=== PATIENT | male | born 1990 | race Caucasian/White ===

== ENCOUNTER 2017-07-17 20:50 | Inpatient (IN) | payer MEDICAID, OTHER, SELFPAY ==
[2017-07-17 21:47] LABS: HEMATOCRIT 44.6 % (42.0-52.0); HEMOGLOBIN 15.3 g/dl (14.0-18.0); MEAN CORPUSCULAR HEMOGLOBIN 30.1 pg (27.0-33.0); MEAN CORPUSCULAR HGB CONC 34.3 g/dl (32.0-36.5); MEAN CORPUSCULAR VOLUME 87.8 fl (80.0-96.0); PLATELET COUNT, AUTOMATED 218 10^3/uL (150-450); RED BLOOD COUNT 5.08 10^6/uL (4.30-6.10); RED CELL DISTRIBUTION WIDTH 11.8 % (11.5-14.5); WHITE BLOOD COUNT 9.3 10^3/uL (4.0-10.0)
[2017-07-17 22:10] LABS: AMPHETAMINES LEVEL URINE NEGATIVE (NEGATIVE); BARBITURATES URINE NEGATIVE (NEGATIVE); BENZODIAZEPINES URINE NEGATIVE (NEGATIVE); CANNABINOIDS URINE NEGATIVE (NEGATIVE); COCAINE METABOLITE URINE NEGATIVE (NEGATIVE); METHADONE URINE NEGATIVE (NEGATIVE); OPIATES URINE NEGATIVE (NEGATIVE); PHENCYCLIDINE URINE NEGATIVE (NEGATIVE)
[2017-07-17 22:19] LABS: ACETAMINOPHEN LEVEL < 2.0 UG/ML (10.0-30.0); ALBUMIN 4.5 GM/DL (3.2-5.2); ALBUMIN/GLOBULIN RATIO 1.36 (1.00-1.93); ALKALINE PHOSPHATASE 70 U/L (45-117); ALT/SGPT 16 U/L (12-78); ANION GAP 7 MEQ/L (8-16); AST/SGOT 15 U/L (7-37); BILIRUBIN,DIRECT < 0.1 MG/DL (0.0-0.2); BILIRUBIN,TOTAL 0.4 MG/DL (0.2-1.0); BLOOD UREA NITROGEN 9 MG/DL (7-18); CALCIUM LEVEL 9.3 MG/DL (8.5-10.1); CARBON DIOXIDE LEVEL 29 MEQ/L (21-32); CHLORIDE LEVEL 104 MEQ/L (98-107); CREATININE FOR GFR 0.76 MG/DL (0.70-1.30); ETHYL ALCOHOL (ETHANOL) < 0.003 % (0.000-0.010); GLOMERULAR FILTRATION RATE > 60.0 (>60); GLUCOSE, FASTING 91 MG/DL (70-100); POTASSIUM SERUM 3.9 MEQ/L (3.5-5.1); SODIUM LEVEL 140 MEQ/L (136-145); TOTAL PROTEIN 7.8 GM/DL (6.4-8.2)
[2017-07-17] MEDS ORDERED: MAALOX 30 ML SUSP *UDC PO (22:45)
[2017-07-17] MEDS ORDERED: MOM 30ML SUSPENSION UDC PO (22:45)
[2017-07-18] MEDS: VENLAFAXINE **XR** 37.5 MG CAPSULE PO (09:40)
[2017-07-18] MEDS: ACETAMINOPHEN TAB 650MG DOSE (2X325MG) PO (21:53)
[2017-07-19] MEDS: VENLAFAXINE **XR** 37.5 MG CAPSULE PO (09:09)
[2017-07-20] MEDS: VENLAFAXINE **XR** 75MG CAPSULE PO (09:11)
[2017-07-21] MEDS: VENLAFAXINE **XR** 75MG CAPSULE PO (09:58)
[2017-07-21] MEDS: traZODone 50 MG TAB PO (21:18)
[2017-07-22] MEDS: VENLAFAXINE **XR** 75MG CAPSULE PO (09:18)
[2017-07-22] MEDS: traZODone 100 MG TAB PO (20:27)
[2017-07-22] MEDS: ACETAMINOPHEN TAB 650MG DOSE (2X325MG) PO (20:28)
[2017-07-23] MEDS: VENLAFAXINE **XR** 75MG CAPSULE PO (09:45)
[2017-07-23] MEDS: traZODone 100 MG TAB PO (22:15)
[2017-07-24] MEDS: VENLAFAXINE **XR** 75MG CAPSULE PO (09:53)
== END 2017-07-24 13:26 | disposition home or self-care (01) | DRG 754 ==
LOC: M ED 20:50 → M ED INP 22:35 → M PSY 23:12
DX: F32.9 Major depressive disorder, single episode, unspecified (principal); Z79.899 Other long term (current) drug therapy

== ENCOUNTER 2023-08-12 18:16 | Inpatient (IN) | payer MEDICAID, OTHER ==
[~2023-08-12] VITALS: Ht 180.3 cm; Wt 61.1 kg
[~2023-08-12 18:16] MED LIST: CYMB60CA4 PO; TRAZ1TAB12 PO; VENL75CA47 PO
[2023-08-12 20:04] LABS: HEMATOCRIT 42.3 % (42.0-52.0); HEMOGLOBIN 14.9 g/dl (13.5-17.5); MEAN CORPUSCULAR HEMOGLOBIN 30.5 pg (27.0-33.0); MEAN CORPUSCULAR HGB CONC 35.2 g/dl (32.0-36.5); MEAN CORPUSCULAR VOLUME 86.5 fl (80.0-96.0); PLATELET COUNT, AUTOMATED 260 10^3/uL (150-450); RED BLOOD COUNT 4.89 10^6/uL (4.30-6.10); WHITE BLOOD COUNT 12.7 10^3/uL (4.0-10.0)
[2023-08-12] MEDS ORDERED: HOME MED LIST COMPLETE! XX SCH (20:05)
[2023-08-12 20:28] LABS: AMPHETAMINES LEVEL URINE NEGATIVE (NEGATIVE); BARBITURATES URINE NEGATIVE (NEGATIVE); BENZODIAZEPINES URINE NEGATIVE (NEGATIVE)
[2023-08-12 20:29] LABS: CANNABINOIDS URINE NEGATIVE (NEGATIVE); COCAINE METABOLITE URINE NEGATIVE (NEGATIVE); METHADONE URINE NEGATIVE (NEGATIVE); OPIATES URINE NEGATIVE (NEGATIVE); PHENCYCLIDINE URINE NEGATIVE (NEGATIVE)
[2023-08-12 20:31] LABS: ETHYL ALCOHOL (ETHANOL) < 0.003 % (0.000-0.010)
[2023-08-12 20:32] LABS: ALBUMIN 4.6 G/DL (3.2-5.2); ALKALINE PHOSPHATASE 60 U/L (46-116); ALT/SGPT 10 U/L (7.0-40); AST/SGOT 9 U/L (<34); BILIRUBIN,DIRECT 0.2 MG/DL (<0.4); BILIRUBIN,TOTAL 0.6 MG/DL (0.3-1.2); BLOOD UREA NITROGEN 12 MG/DL (9-23); CALCIUM LEVEL 9.9 MG/DL (8.5-10.1); CARBON DIOXIDE LEVEL 27 MMOL/L (20-31); CHLORIDE LEVEL 106 MMOL/L (98-107); CREATININE FOR GFR 0.76 MG/DL (0.70-1.30); GLOMERULAR FILTRATION RATE > 60.0 (>60); GLUCOSE, FASTING 104 MG/DL (60-100); POTASSIUM SERUM 4.1 MMOL/L (3.5-5.1); SALICYLATE LEVEL < 3.0 MG/DL (<30); SODIUM LEVEL 138 MMOL/L (136-145); TOTAL PROTEIN 7.2 G/DL (5.7-8.2)
[2023-08-12 20:35] LABS: THYROID STIMULATING HORMONE 1.334 uIU/ML (0.55-4.78)
[2023-08-13] MEDS ORDERED: traZODone 50 MG TAB PO PRN (03:00)
[2023-08-13] MEDS ORDERED: MAALOX 30 ML SUSP *UDC PO PRN (03:00)
[2023-08-13] MEDS ORDERED: diphenhydrAMINE 25MG CAP PO PRN (03:00)
[2023-08-13] MEDS ORDERED: MOM 30ML SUSPENSION UDC PO PRN (03:00)
[2023-08-13 03:54] VITALS: BP 122/78; TEMP 99.4; O2SAT 98
[2023-08-13] MEDS: ACETAMINOPHEN TAB 650MG DOSE (2X325MG) PO PRN (05:26)
[2023-08-13] MEDS: VENLAFAXINE **XR** 37.5 MG CAPSULE PO SCH (09:37)
[2023-08-13] MEDS: IBUPROFEN 400MG TAB PO PRN (10:58)
[2023-08-13] MEDS: NICOTINE 21MG/24HR 1 EA TRANSDERMAL TD SCH (14:19)
[2023-08-13 17:39] VITALS: BP 117/66; TEMP 98.7
[2023-08-13] MEDS: ARIPiprazole 2 MG TAB PO SCH (21:44)
[2023-08-14 06:43] VITALS: BP 113/57; TEMP 100; O2SAT 100
[2023-08-14] MEDS ORDERED: risperiDONE 1 MG TAB PO PRN (10:55)
[2023-08-14 17:34] VITALS: BP 138/92; TEMP 98.1; O2SAT 98
[2023-08-15 06:38] VITALS: BP 133/80; TEMP 98.3; O2SAT 95
[2023-08-15] MEDS: OLANZapine 5 MG TAB PO SCH (11:32)
[2023-08-15 16:25] VITALS: BP 120/73; TEMP 98.2; O2SAT 100
[2023-08-16 06:13] VITALS: BP 102/62; TEMP 97.7; O2SAT 98
[2023-08-16 15:53] VITALS: BP 134/86; TEMP 97.9; O2SAT 100
[2023-08-17 06:39] VITALS: BP 102/58; TEMP 98; O2SAT 97
[2023-08-17 16:04] VITALS: BP 113/57; TEMP 98.8; O2SAT 96
[2023-08-18 06:41] VITALS: BP 140/71; TEMP 97.9; O2SAT 98
[2023-08-18 16:42] VITALS: BP 111/61; TEMP 99.2; O2SAT 96
[2023-08-19 06:10] VITALS: BP 127/64; TEMP 97.4; O2SAT 97
[2023-08-19] MEDS: VENLAFAXINE **XR** 75MG CAPSULE PO SCH ×2 (08:14→21:00)
[2023-08-19 16:02] VITALS: BP 114/58; TEMP 98.7
[2023-08-20] MEDS: VENLAFAXINE **XR** 75MG CAPSULE PO ONE (12:32)
[2023-08-20 18:19] VITALS: BP 134/86; TEMP 98.5
[2023-08-21 06:22] VITALS: BP 123/69; TEMP 98.7; O2SAT 96
[2023-08-21] MEDS: VENLAFAXINE **XR** 75MG CAPSULE PO SCH (08:34)
[2023-08-21 16:59] VITALS: BP 129/71; TEMP 98.9; O2SAT 96
[2023-08-22 06:06] VITALS: BP 140/92; TEMP 97.9; O2SAT 99
[2023-08-22] MEDS ORDERED: VENL75CA47 PO (09:21)
== END 2023-08-22 17:23 | disposition home or self-care (01) | DRG 751 ==
LOC: M ED 18:16 → M ED INP 08-13 02:59 → M PSY 08-13 03:52
PROVIDERS: ADMIT Psychiatry & Neurology Psychiatry; ATTEND Student in an Organized Health Care Education/Training Program
DX: F33.3 Major depressive disorder, recurrent, severe with psychotic symptoms (principal); W22.09XA Striking against other stationary object, initial encounter; Y92.9 Unspecified place or not applicable; M25.541 Pain in joints of right hand; M25.542 Pain in joints of left hand; F17.200 Nicotine dependence, unspecified, uncomplicated; Z81.8 Family history of other mental and behavioral disorders; Z56.0 Unemployment, unspecified; Z11.52 Encounter for screening for COVID-19

== ENCOUNTER → 2023-08-26 | Outpatient (REF) | payer MEDICAID ==
[2023-08-26 14:28] LABS: ALBUMIN 4.1 G/DL (3.2-5.2); ALKALINE PHOSPHATASE 54 U/L (46-116); ALT/SGPT 15 U/L (7.0-40); AST/SGOT 12 U/L (<34); BILIRUBIN,TOTAL 0.3 MG/DL (0.3-1.2); BLOOD UREA NITROGEN 7 MG/DL (9-23); CALCIUM LEVEL 9.9 MG/DL (8.5-10.1); CARBON DIOXIDE LEVEL 31 MMOL/L (20-31); CHLORIDE LEVEL 106 MMOL/L (98-107); CHOLESTEROL LEVEL 177 MG/DL (<200); CHOLESTEROL RISK RATIO 3.53 (<5); CREATININE FOR GFR 0.63 MG/DL (0.70-1.30); GLOMERULAR FILTRATION RATE > 60.0 (>60); GLUCOSE, FASTING 92 MG/DL (60-100); HDL CHOLESTEROL 50.1 MG/DL (>40); LDL CHOLESTEROL 110.1 MG/DL (<100); NON-HDL-C 126.9 MG/DL; POTASSIUM SERUM 4.8 MMOL/L (3.5-5.1); SODIUM LEVEL 139 MMOL/L (136-145); TOTAL PROTEIN 6.9 G/DL (5.7-8.2); TRIGLYCERIDES LEVEL 84 MG/DL (<150)
[2023-08-26 14:30] LABS: THYROID STIMULATING HORMONE 0.987 uIU/ML (0.55-4.78); TOTAL 25(OH) VITAMIN D 7.7 NG/ML (20.0-100.0)
[2023-08-26 14:32] LABS: HEMOGLOBIN A1c 5.2 % (4.0-6.0)
[2023-08-26 15:00] LABS: HIV 1&2 SCREEN NEGATIVE (NEGATIVE)
[2023-08-26 15:08] LABS: HEPATITIS C VIRUS ABY INDEX < 0.02 INDEX (<0.8)
== END ==
LOC: M LAB REF 11:48
PROVIDERS: ATTEND Physician Assistant
DX: F32.9 Major depressive disorder, single episode, unspecified (principal); Z11.9 Encounter for screening for infectious and parasitic diseases, unspecified; E55.9 Vitamin D deficiency, unspecified; Z13.220 Encounter for screening for lipoid disorders